=== PATIENT | female | born 2000 | race American Indian/Alaskan Native ===

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

== ENCOUNTER 2018-09-10 00:33 | Emergency (ER) | payer MEDICAID ==
--- NOTE | 2018-09-10 01:51 | C.PDOC ---
History Of Present Illness 18 year old female presents to the ER for a complaint of nausea and vomiting that began last night. Patient states she was in someone's car which was "jumping up and down", afterwards she got sudden onset nausea and vomited several times, up to the point where she needed to call EMS. Denies fever, diarrhea, or GI bleed. PAtient reports that she currently feels improved. Time Seen by Provider: 09/10/18 01:05 Chief Complaint (Nursing): GI Problem History Per: Patient History/Exam Limitations: no limitations Onset/Duration Of Symptoms: Hrs Current Symptoms Are (Timing): Better Associated Symptoms: Nausea, Vomiting. denies: Fever, Diarrhea, Other (GI bleed) Exacerbating Factors: None Alleviating Factors: None Recent travel outside of the [place]: No Abnormal Vaginal Bleeding: No Past Medical History Reviewed: Historical Data, Nursing Documentation, Vital Signs Vital Signs: Last Vital Signs Temp 97.4 F L 09/10/18 00:44 Pulse 78 09/10/18 00:44 Resp 20 09/10/18 00:44 BP 120/80 09/10/18 00:44 Pulse Ox 100 09/10/18 00:44 - Medical History PMH: Anemia Family History: States: Unknown Family Hx - Social History Hx Tobacco Use: No Hx Alcohol Use: No Hx Substance Use: No - Immunization History Hx Tetanus Toxoid Vaccination: Yes Hx Influenza Vaccination: No Hx Pneumococcal Vaccination: No Review Of Systems Constitutional: Negative for: Fever, Chills ENT: Negative for: Throat Pain Cardiovascular: Negative for: Chest Pain, Palpitations Respiratory: Negative for: Cough Gastrointestinal: Positive for: Vomiting. Negative for: Diarrhea, Hematemesis Physical Exam - Physical Exam Appears: Non-toxic, No Acute Distress Skin: Normal Color, Warm, Dry Head: Atraumatic, Normacephalic Eye(s): bilateral: Normal Inspection Oral Mucosa: Moist Throat: Normal, No Erythema, No Exudate Neck: Normal, No Midline Cervical Tenderness, No Paracervical Tenderness, Supple Chest: Symmetrical, No Tenderness Cardiovascular: Rhythm Regular Respiratory: Normal Breath Sounds, No Rales, No Rhonchi, No Wheezing Gastrointestinal/Abdominal: Soft, No Tenderness Back: No CVA Tenderness Extremity: Normal ROM (x4) Neurological/Psych: Oriented x3, Normal Speech ED Course And Treatment O2 Sat by Pulse Oximetry: 100 (Room air) Pulse Ox Interpretation: Normal Medical Decision Making Medical Decision Making: On re-exam, the patient reports improvement of symptoms. Lungs are CTA, heart is RRR, abdomen is soft, non-tender and the patient is tolerating PO well. Ambulatory in the ED with steady gait. Disposition - Disposition Referrals: Chang Almodovar MD [Primary Care Provider] - Disposition: HOME/ ROUTINE Disposition Time: 02:15 Condition: STABLE Additional Instructions: Follow up with the medical doctor within 1-2 days. Return if worsened. Prescriptions: Ondansetron ODT [Zofran ODT] 1 odt PO BID PRN #10 odt PRN Reason: Nausea/Vomiting Instructions: Nausea and Vomiting, Child (DC) Forms: [employer] (Swedish), Work Excuse - Clinical Impression Clinical Impression: Vomiting - PA / MATRIX INSPECTOR / Resident Statement MD/DO has reviewed & agrees with the documentation as recorded. - Scribe Statement The provider has reviewed the documentation as recorded by the Scribe Frantz Vega All medical record entries made by the Scribe were at my direction and personally dictated by me. I have reviewed the chart and agree that the record accurately reflects my personal performance of the history, physical exam, medical decision making, and the department course for this patient. I have also personally directed, reviewed, and agree with the discharge instructions and disposition.
[2018-09-10 02:29] VITALS: BP 112/72; PULSE 82; RESP 16; TEMP 98.4
[2018-09-12 04:58] VITALS: O2SAT 100
== END 2018-09-10 02:23 | disposition home or self-care (01) ==
LOC: C.ER 00:33 → SUPCPDRO 00:33 → C.ER 02:23
DX: R11.2 Nausea with vomiting, unspecified (principal)

== ENCOUNTER 2018-12-27 19:10 | Emergency (ER) | payer MEDICAID ==
--- NOTE | 2018-12-27 19:40 | C.PDOC ---
History Of Present Illness 18 yr old F w/ hx of anemia on Fe p/w abdominal pain. Pt notes abdominal pain started yesterday, RLQ after using her waist sports trainer. Pt notes pain is a throbbing and twitching like pain. She notes that she had similiar pain last month without waist sports trainer usage. She denies any rash, trauma or fall to that area. She also notes intermittent nausea, but no vomiting. No chest pain or sob. No constipation, but 2 episodes of diarrhea today. No abnl change in diet or recent travel abroad. No abnl vaginal d/c. LMP ended 2d, normal. Pt notes she took some motrin last night which mildly improved the pain No other complaints. Time Seen by Provider: 12/27/18 19:40 Chief Complaint (Nursing): Abdominal Pain Past Medical History Vital Signs: Last Vital Signs Temp 98.4 F 12/27/18 19:32 Pulse 56 L 12/27/18 19:32 Resp 16 12/27/18 19:32 BP Pulse Ox 100 12/27/18 19:32 - Medical History PMH: Anemia Family History: States: Unknown Family Hx - Social History Hx Tobacco Use: No Hx Alcohol Use: No Hx Substance Use: No - Immunization History Hx Tetanus Toxoid Vaccination: Yes Hx Influenza Vaccination: No Hx Pneumococcal Vaccination: No Review Of Systems Constitutional: Negative for: Fever, Chills, Sweats, Weakness, Malaise, Weight loss Eyes: Negative for: Pain, Vision Change, Conjunctivae Inflammation, Eyelid Inflammation, Redness ENT: Negative for: Ear Pain, Ear Discharge, Nose Pain, Nose Discharge, Nose Congestion, Mouth Pain, Mouth Swelling, Throat Pain Cardiovascular: Negative for: Chest Pain, Palpitations, Orthopnea Respiratory: Negative for: Cough, Shortness of Breath, SOB with Excertion Gastrointestinal: Positive for: Nausea, Abdominal Pain, Diarrhea. Negative for: Vomiting, Constipation, Melena, Hematochezia, Hematemesis, Rectal Pain Genitourinary: Negative for: Dysuria, Frequency, Incontinence, Hematuria, Vaginal Discharge, Vaginal Bleeding, Pelvic Pain, Rash Musculoskeletal: Negative for: Neck Pain, Shoulder Pain, Back Pain, Hand Pain Neurological: Negative for: Weakness, Numbness, Confusion, Seizures, Altered Mental Status, Headache Psych: Negative for: Anxiety, Depression, Psychosis, Suicidal ideation Physical Exam - Physical Exam Appears: Well, Non-toxic, No Acute Distress Skin: Normal Color, Warm Head: Atraumatic, Normacephalic Eye(s): bilateral: Normal Inspection, PERRL, EOMI Nose: Normal Oral Mucosa: Moist Tongue: Normal Appearing Throat: Normal, No Erythema, No Exudate Neck: Normal, Normal ROM, Supple, Other (no meningeal signs) Lymphatic: Normal Exam, No Adenopathy Chest: Symmetrical, No Deformity Cardiovascular: Rhythm Regular, No Murmur, No JVD Respiratory: Normal Breath Sounds Gastrointestinal/Abdominal: Soft, Tenderness (rlq, mild), No Organomegaly, No Mass, No Distention, No Guarding, No Hernia Back: Normal Inspection, No CVA Tenderness, No Vertebral Tenderness Extremity: Normal ROM Extremity: Bilateral: Atraumatic Neurological/Psych: Oriented x3, Normal Speech, Normal Cognition Gait: Steady ED Course And Treatment - Laboratory Results Result Diagrams: 12/27/18 20:15 12/27/18 20:15 O2 Sat by Pulse Oximetry: 100 Medical Decision Making Medical Decision Makin yr old F p/w RLQ pain, throbbing, twitching like after waist sports trainer usage. PT also however notes same pain prior to waist sports trainer previously. Given RLQ pain on palpation will seek CT for appdx r/out. Likely msk ache. Pt in NAD, labs imaging pending 2100 POC negative labs largely unremarkable pt in [facility] pending CT 1212 acal choly? on CT. Kidney stone also noted us ordered Resident, surgery to see pt 0200 pending US pt in [facility] EKG w/ 41, sinus rajinder, no stemi while pt noted to be sleeping. 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 0340 US done, pending results 0519 no elevated WBC repeat abd exam: pt non-ttp. 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: clear for d/c home with return indications and followup Pt to followup with urology and surgery outpt pt agreeable to plan Disposition - Disposition Referrals: Sukhjinder Garcia MD [Staff Provider] - [facility] [Outside] [facility] [Outside] [facility] [Outside] Heladio Jacob MD [Staff Provider] - Disposition: HOME/ ROUTINE Disposition Time: 05:23 Condition: GOOD Additional Instructions: FOLLOW UP WITH SURGERY OUTPATIENT IF YOU HAVE ANY RIGHT UPPER ABDOMINAL PAIN NEAR YOUR RIB FOLLOW UP WITH UROLOGY FOR YOUR KIDNEY STONE RETURN IF ANY OTHER NEW ISSUES JIGNA ROUSSEAU, thank you for letting us take care of you today. Your provider was Tao Sin and you were treated for STOMACH PAIN. The emergency medical care you received today was directed at your acute symptoms. If you were prescribed any medication, please fill it and take as directed. It may take several days for your symptoms to resolve. Return to the Emergency Department if your symptoms worsen, do not improve, or if you have any other problems. Please contact your doctor or call one of the physicians/clinics you have been referred to that are listed on the Patient Visit Information form that is included in your discharge packet. Bring any paperwork you were given at discharge with you along with any medications you are taking to your follow up visit. Our treatment cannot replace ongoing medical care by a primary care provider outside of the emergency department. Thank you for allowing the [facility] team to be part of your care today. If you had an X-Ray or CT scan: A Radiologist will review the ED reading if any change in treatment is needed we will contact you. If you had a blood, urine, or wound culture: It will take several days for the results, if any change in treatment is needed we will contact you. If you had an STI test: It will take 48 hours for the results. Please call after 1 week if you have not heard back. Prescriptions: Ibuprofen [Motrin] 400 mg PO Q6H 7 Days #28 tab Tamsulosin [Flomax] 0.4 mg PO DAILY 10 Days #10 cap Instructions: How to Strain Your Urine, Renal Colic (DC) Forms: [employer] (Nepalese) - Clinical Impression Clinical Impression: Kidney stone, Abnormal gallbladder ultrasound
[2018-12-27] MEDS ORDERED: Sodium Chloride 0.9% 1,000 ML IV ONE (20:05)
[2018-12-27 20:14] LABS: SQUAMOUS EPITHIAL 1 /hpf (0-5); URINE BACTERIA RARE (<OCC); URINE BILIRUBIN NEGATIVE (NEGATIVE); URINE BLOOD 1+ (NEGATIVE); URINE CLARITY Hazy (Clear); URINE COLOR Yellow (YELLOW); URINE GLUCOSE (UA) NORMAL (Normal); URINE LEUKOCYTE ESTERASE NEG Leu/uL (Negative); URINE PROTEIN NEGATIVE (NEGATIVE); URINE UROBILINOGEN NORMAL mg/dL (0.2-1.0)
[2018-12-27 20:20] LABS: BASO % 0.6 % (0.0-2.0); EOS % 0.5 % (0.0-4.0); HEMOGLOBIN 11.8 g/dL (11.0-16.0); LYMPH # 0.9 K/uL (1.0-4.3); LYMPH % 26.7 % (20.0-40.0); MEAN CORPUSCULAR HEMOGLOBIN 30.3 pg (27.0-31.0); MEAN CORPUSCULAR HGB CONC 32.7 g/dL (33.0-37.0); MEAN PLATELET VOLUME 9.8 fL (7.2-11.7); MONO # 0.3 K/uL (0.0-0.8); MONO % 8.6 % (0.0-10.0); NEUT # 2.2 K/uL (1.8-7.0); NEUT % 63.6 % (50.0-75.0); NRBC % 0.1 % (0.0-2.0); RBC 3.88 Mil/uL (3.80-5.20); RED CELL DISTRIBUTION WIDTH 13.2 % (11.5-14.5); WHITE BLOOD COUNT 3.4 K/uL (4.8-10.8)
[2018-12-27 20:24] LABS: MEAN CELL VOLUME 92.7 fL (81.0-99.0)
[2018-12-27 20:33] LABS: ALB/GLOB RATIO 1.4 (1.0-2.1); ALBUMIN 4.3 g/dL (3.5-5.0); ALT/SGPT 7 U/L (9-52); AST/SGOT 24 U/L (14-36); BLOOD UREA NITROGEN 12 mg/dL (7-17); CALCIUM 9.3 mg/dl (8.6-10.4); GFR NON-AFRICAN AMERICAN > 60; LIPASE 59 U/L (23-300)
[2018-12-27] MEDS ORDERED: Iodixanol 320 MG/ML 100 ML BOTTLE IV ONE (22:26)
[2018-12-28 02:10] VITALS: RESP 18
[2018-12-28 05:52] VITALS: BP 112/66; PULSE 81; TEMP 97.9; O2SAT 99
--- NOTE | 2018-12-28 10:47 | US ---
Date of service: 12/28/2018 HISTORY: choley? COMPARISON: Comparison is made with the previous CT dated 12/27/2018 TECHNIQUE: Sonographic evaluation of the right upper quadrant of the abdomen. FINDINGS: LIVER: Measures 18.4 cm in length. There is heterogeneous echogenicity of the liver with scattered echogenic diets throughout the liver noted. Findings are nonspecific and the possibility of starry gonsalo appearance which can be seen in hepatitis and other etiology should be considered.. No mass. No intrahepatic bile duct dilatation. GALLBLADDER: Diffuse gallbladder wall thickening with small pericholecystic fluid is noted. There is no evidence of cholelithiasis. COMMON BILE DUCT: Measures 4.3 mm. No stones. No dilatation. PANCREAS: Unremarkable as visualized. No mass. No ductal dilatation. RIGHT KIDNEY: Measures 12.2 x 3.2 x 5.2 cm in length. Normal echogenicity. No calculus, mass, or hydronephrosis. AORTA: No aneurysmal dilatation. IVC: Unremarkable. OTHER FINDINGS: None . IMPRESSION: Diffuse gallbladder wall thickening and trace pericholecystic fluid noted. No definite evidence of cholelithiasis. The possibility of acute cholecystitis is less likely. Please correlate clinically. Heterogeneous echogenicity of the liver with findings suspicious for possible starry gonsalo liver appearance which can be seen in hepatitis and other etiology. Preliminary report [facility] contains concordant findings.
--- NOTE | 2018-12-28 14:06 | CT ---
Date of service: 12/27/2018 PROCEDURE: CT Abdomen and Pelvis with contrast HISTORY: rlq pain COMPARISON: None. TECHNIQUE: Contrast dose: 100 mL of Visipaque 320 intravenously. Axial and reformatted coronal and sagittal CT images of the abdomen and pelvis were obtained after IV contrast administration. Radiation dose: Total exam DLP = 612.89 mGy-cm. This CT exam was performed using one or more of the following dose reduction techniques: Automated exposure control, adjustment of the mA and/or kV according to patient size, and/or use of iterative reconstruction technique. FINDINGS: LOWER THORAX: Unremarkable. LIVER: Mild hepatomegaly is noted. There is mild periportal edema noted. The portal vein is patent. GALLBLADDER AND BILE DUCTS: There is mild gallbladder wall thickening. There is a small pericholecystic fluid. PANCREAS: Unremarkable. No gross lesion or ductal dilatation. SPLEEN: Unremarkable. ADRENALS: Unremarkable. No mass. KIDNEYS AND URETERS: Unremarkable. No hydronephrosis. No solid mass. VASCULATURE: Unremarkable. No aortic aneurysm. No aortic atherosclerotic calcification or mural plaque present. BOWEL: Unremarkable. No obstruction. No gross mural thickening. Mild constipation is noted. APPENDIX: There is no evidence of appendicitis. PERITONEUM: Unremarkable. No free fluid. No free air. LYMPH NODES: Unremarkable. No enlarged lymph nodes. BLADDER: Unremarkable. REPRODUCTIVE: Heterogeneous uterus with possible small amount of fluid in the endometrial cavity. BONES: No acute fracture. OTHER FINDINGS: None. IMPRESSION: Mild periportal edema noted. Mild hepatomegaly. Mild gallbladder wall thickening and trace pericholecystic fluid noted. If clinically warranted further evaluation of the liver and gallbladder by ultrasound may be obtained. 2.5 millimeter calcification noted at the right pelvis adjacent to the bladder may represent phleboliths. The possibility of distal right ureter stone is less likely. Preliminary report was submitted by [facility] contains concordant findings.
== END 2018-12-28 05:52 | disposition home or self-care (01) ==
LOC: C.ER 19:10
DX: N20.0 Calculus of kidney (principal); R94.8 Abnormal results of function studies of other organs and systems
CPT/HCPCS: 74177; 76705; 80053; 81001; 81025; 82550; 83690; 85025; 96374; 99284; J1885; J7030; Q9967